=== PATIENT | male | born 1940 | race Caucasian/White ===

== ENCOUNTER → 2020-05-14 | Outpatient (CLI) | payer OTHER | LOC: LAB SHORT 14:34 → LAB UCHC 14:34 | DX: R10.33 Periumbilical pain (principal) | CPT/HCPCS: 87077; 87086; 87186 ==

== ENCOUNTER → 2021-09-29 | Outpatient (CLI) | payer OTHER | END | disposition home or self-care (01) | LOC: LAB SHORT 18:57 → LAB 18:57 | DX: N30.01 Acute cystitis with hematuria (principal) | CPT/HCPCS: 87077; 87086; 87186 ==

== ENCOUNTER → 2022-03-11 | Outpatient (CLI) | payer OTHER ==
[2022-03-19 12:11] LABS: Performing Lab SYMBIODX; Test Name TISSUE BIOPSY
== END ==
LOC: PLD 08:11 → LAB SHORT 08:11
PROVIDERS: Pathology Clinical Pathology/Laboratory Medicine
DX: D49.0 Neoplasm of unspecified behavior of digestive system (principal); Z85.810 Personal history of malignant neoplasm of tongue
CPT/HCPCS: 88305; 88341; 88342